=== PATIENT | female | born 1970 | race Caucasian/White ===

== ENCOUNTER → 2017-07-09 | Outpatient (CLI) | payer OTHER ==
[~2017-07-09] MED LIST: "\\\"PREP SPRAY\\\"-TIN4 OZ"; ALIGN4 MG PO; ATIVAN 1 MG1 MG PO; CLARITIN10 MG PO; EFFEXOR75 MG PO; ELAVIL25 MG PO; ESTRIOL PO; IBUPROFEN800 MG PO; NUCYNTA50 MG PO; PREVACID15 MG PO; RAPAFLO8 MG PO; TYLENOL/COD#31 TAB PO; [UNRECOGNIZED DRUG - OTHER] PO; [UNRECOGNIZED DRUG - REMARK] PO
== END | disposition disaster alternative care site (69) ==
LOC: GBCOE 05-13 13:00
DX: M85.89 Other specified disorders of bone density and structure, multiple sites (principal)

== ENCOUNTER → 2017-07-11 | Outpatient (CLI) | payer OTHER | END | disposition disaster alternative care site (69) | LOC: GRAD 10:23 | DX: R59.0 Localized enlarged lymph nodes (principal); E04.2 Nontoxic multinodular goiter ==

== ENCOUNTER → 2017-07-17 | Outpatient (CLI) | payer OTHER | END | disposition disaster alternative care site (69) | LOC: GPOC 07-16 11:00 | PROC: 0G9G3ZX Drainage of Left Thyroid Gland Lobe, Percutaneous Approach, Diagnostic (ICD-10-PCS; principal; 2017-07-17) | DX: E04.2 Nontoxic multinodular goiter (principal) ==